=== PATIENT | female | born 1980 | race Caucasian/White ===

== ENCOUNTER → 2020-02-29 16:27 | Outpatient (BNVA) | payer OTHER, SELFPAY | PROVIDERS: Family Provider Family Medicine; PCP Internal Medicine Medical Oncology; Visit Provider Family Medicine | DX: Z20.828 Contact with and (suspected) exposure to other viral communicable diseases (principal) | CPT/HCPCS: 87635 ==

== ENCOUNTER → 2020-03-07 17:25 | Outpatient (BNVA) | payer OTHER, SELFPAY | PROVIDERS: Family Provider Family Medicine; PCP Internal Medicine Medical Oncology; Visit Provider Nurse Practitioner | DX: Z01.812 Encounter for preprocedural laboratory examination (principal); Z20.828 Contact with and (suspected) exposure to other viral communicable diseases | CPT/HCPCS: 87635 ==

== ENCOUNTER 2020-04-10 12:36 | Emergency (ER) | payer OTHER, SELFPAY ==
[2020-04-10 12:55] VITALS: BP 95/59; PULSE 80; RESP 16; TEMP 36.6; O2SAT 95; BMI 26.6
--- NOTE | 2020-04-10 13:03 | CT_ITS ---
WS: [id number] Exam: CT kidney stone [id number] Date/Time of Exam: 04/10/2020 1:35 PM Reason For Exam: L back pain DLP: 1223.[address] scans at [facility] use at least one of these dose optimization techniques: automat ed exposure control; mA and/or kV adjustment per patient size (includes targeted exams where dose is matched to clinical indication); or iterative reconstruction. Compared to prior study 11/01/2003. A 9 mm x 5.7 mm obstructing calculus is identified at the left UPJ. There is left hydronephrosis. An additional nonobstructing 2 mm stone is seen in the left kidney. No stones in the right kidney. The u reters are otherwise patent into the bladder. Lower lung zones are clear. Bilateral breast implants a re noted. The liver, gallbladder, spleen and pancreas appear normal. The stomach is unremarkable. Nor mal adrenal glands. The abdominal aorta is normal in caliber. No free air. No lymphadenopathy. Small bowel loops are not dilated. No significant large bowel abnormality seen. No sign of acute appendix. No mass or lymphadenopathy in the pelvis. The uterus is surgically absent. Intact urinary bladder. Fa t filled periumbilical hernia. No destructive bone lesions are seen. CT/CT kidney stone [id number] IMPRESSION: 1. 9 mm x 5.7 mm obstructing calculus at the left UPJ with hydronephrosis. An a dditional 2 mm nonobstructing stone in the left kidney. 2. Fat filled periumbilical hernia. 3. No other significant finding in the abdomen or pelvis.
--- NOTE | 2020-04-10 13:03 | W.ED.FEMALGU ---
HPI - Female Genitourinary General: Chief complaint: Urogenital-Female Stated complaint: severe lower back pain Time Seen by Provider: 04/10/20 12:59 Source: patient Mode of arrival: ambulatory Limitations: no limitations History of Present Illness: HPI Narrative: Patient is a nice 39-year-old female who presents to ED today with a complaint of left-sided back pain that began today fairly suddenly. Patient tells me she believes she might have a kidney stone. She states she had one stone approximately 16 years ago and states the pain feels similar. She has not had any injury or trauma to her back. No radicular symptoms. She states pain does seem to radiate into her abdomen. She reports nausea without vomiting. Urinary and defecation habits have been normal. She has not been running fevers. Blood pressure was noted to be low in triage 95/59. Patient has seen PCP recently who has changed her blood pressure medications for her hypertension. She denies lightheadedness/dizziness. MD elicited complaint: flank pain (L lower back pain) Onset (ago): hour(s) Location of symptoms: low back and other (L flank) Severity: severe Quality of pain: sharp Consistency: constant Vaginal discharge: none Vaginal bleeding: none Urinary symptoms: Flank Pain Exacerbating factors: none Relieving factors: none Associated symptoms: Reports nausea; Deny headache(s) Treatment prior to arrival: none Patient : No Review of Systems Const: Denies: fever(s), chills, body aches, fatigue or malaise Card: Denies: chest pain Resp: Denies: dyspnea GI: Reports: abdominal pain (reports back pain radiates into abdomen) and nausea; Denies: vomiting, hematemesis, diarrhea, constipation, change in stool character, hematochezia, melena or white/light colored stool : Reports: flank pain; Denies: difficulty voiding, dysuria, urinary frequency, urinary urgency or urinary hesitancy Musc: Reports: back pain; Denies: neck pain, extremity pain, extremity swelling, joint pain or joint swelling Skin/Breast: Denies: rash Neuro: Denies: headache(s) PFS ED PFSH: Medical History (Updated 04/10/20 @ 15:17 by YUNIOR Pratt) Hypertension OCD (obsessive compulsive disorder) Family History (Updated 04/05/20 @ 14:00 by Kelly Avery CMA) Family/Other Hypertension Social History (Updated 04/05/20 @ 14:00 by Kelly Avery CMA) Smoking and tobacco status: never smoked Second hand smoke exposure: Yes Alcohol intake: never Physical Exam Const: COMMON NORMALS: no acute distress, average body habitus, patient oriented x3, no limitations, healthy appearing, alert and well nourished GENERAL APPEARANCE: cooperative ORIENTATION/CONSCIOUSNESS: Yes awake, Yes oriented to person, Yes oriented to place and Yes oriented to time Resp: COMMON NORMALS: normal respiratory effort and clear to auscultation bilaterally AUSCULTATION: clear to auscultation bilaterally Cardio: COMMON NORMALS: regular rate and regular rhythm RHYTHM: regular rhythm GI: COMMON NORMALS: Normal to inspection, nondistended, normoactive bowel sounds present, Soft to palpation, No hepatosplenomegaly present and no masses PALPATION: Yes Soft to palpation, Yes Tenderness to palpation present (GI) (L mid abdomen) and Yes No hepatosplenomegaly present : COMMON NORMALS: Yes no CVA tenderness (TTP below L CVA) BLADDER/KIDNEY EXAM: Yes no CVA tenderness (TTP below L CVA) Back/Pelvis: COMMON NORMALS: no CVA tenderness (TTP below L CVA) Neuro: COMMON NORMALS: patient oriented x3 SENSORIUM/ORIENTATION: Yes alert, Yes oriented to person, Yes oriented to place and Yes oriented to time Skin: COMMON NORMALS: no rashes or lesions noted GENERAL SKIN EXAM: no rashes or lesions noted Course Consultations: Consultation #1: Dr. Mejia-will see patient in office tomorrow with plan for probable lithotripsy on Thursday; requests COVID screen Vital Signs: Vital signs: Vital Signs Temperature 97.9 F 04/10/20 12:55 Pulse Rate 78 04/10/20 14:28 Respiratory Rate 16 04/10/20 14:28 Blood Pressure 112/82 04/10/20 14:28 Pulse Oximetry 100 04/10/20 14:28 MDM - Female MDM Narrative: Medical decision making narrative: Patient's BP did improve during her stay. Her pain is well managed here. Given the size of her stone I did explain to her that urology can put in a ureter stent to help manage her pain however she feels like her pain could be adequately managed at home. I have spoken to Dr. Mejia who is okay with this plan. Urine does not look infected. He would like to see patient in office tomorrow with a plan for lithotripsy on Thursday. Patient will be discharged home with nausea meds and Flomax. She tells me she has enough leftover pain medications at home to last her several days and doesn't want/need a prescription today. Lab Data: Labs: Lab Results 04/10/20 04/10/20 04/10/20 Range/Units 13:21 13:40 13:40 WBC 11.3 H (4.0-10.0) 10^3/ uL RBC 4.82 (4.1-5.3) 10^6/u L Hgb 13.2 (11.5-15.3) g/dL Hct 41.4 (37.0-47.0) % MCV 85.9 (81-99) fL MCH 27.4 L (28.0-34.0) pg MCHC 31.9 (30.0-36.0) g/dL RDW 13.4 (12.1-15.1) % Plt Count 288 (130-400) 10^3/c mm MPV 11.6 H (7.4-10.4) fL Neut % (Auto) 78.9 % Lymph % (Auto) 15.5 % Dent % (Auto) 4.2 % Eos % (Auto) 0.6 % Baso % (Auto) 0.4 % Neut # (Auto) 8.89 H (1.8-7.7) 10^3/u L Lymph # (Auto) 1.7 (0.8-4.8) 10^3/u L Dent # (Auto) 0.5 (0.2-0.9) 10^3/u L Eos # (Auto) 0.1 (0.0-0.8) 10^3/u L Baso # (Auto) 0.1 (0.0-0.1) 10^3/u L Nucleated RBC % (a uto) 0 % Nucleated RBCs # 0.0 /100WBC Sodium 139 (136-145) mmol/L Potassium 3.4 L (3.5-5.1) mmol/L Chloride 103 (98-107) mmol/L Carbon Dioxide 25 (22-29) mmol/L Anion Gap 14.4 (5-19) BUN 14 (6-20) mg/dL Creatinine 0.6 (0.5-0.9) mg/dL GFR Calculation 111.9 (90-130) mL/min Glucose 113 (65-115) mg/dL Calculated Osmolal ity 289 (285-295) mOsm/k g Calcium 8.6 (8.5-10.5) mg/dL Total Bilirubin 0.4 (0.15-1.2) mg/dL AST 12 (0-32) U/L ALT 13 (0-33) U/L Alkaline Phosphata se 73 (35-105) IU/L Total Protein 7.5 (6.6-8.7) g/dL Albumin 4.2 (3.5-5.2) g/dL Globulin 3.3 (1.3-4.6) g/dL HCG, Qual (Negative) Urine Color Yellow (Yellow) Urine Appearance Hazy A (CLEAR) Urine pH 5 (5-7) Ur Specific Gravit y 1.020 (1.005-1.030) Urine Protein Neg (Negative) Urine Glucose (UA) Norm (Normal) Urine Ketones Negative (Negative) Urine Blood 3+ H (Negative) Urine Nitrate Negative (Negative) Urine Bilirubin Neg (Negative) Urine Urobilinogen Norm (Negative) mg/dL Ur Leukocyte Ronit ase Negative (Negative) Urine RBC 10-15 H (0-2) /hpf Urine WBC 0-4 H (0-5) /hpf Ur Squamous Epith Cells 5-10 H (0-5) /hpf Amorphous Sediment Not Reportable Urine Bacteria 3+ H (NONE) /hpf 04/10/20 Range/Units 13:40 WBC (4.0-10.0) 10^3/ uL RBC (4.1-5.3) 10^6/u L Hgb (11.5-15.3) g/dL Hct (37.0-47.0) % MCV (81-99) fL MCH (28.0-34.0) pg MCHC (30.0-36.0) g/dL RDW (12.1-15.1) % Plt Count (130-400) 10^3/c mm MPV (7.4-10.4) fL Neut % (Auto) % Lymph % (Auto) % Dent % (Auto) % Eos % (Auto) % Baso % (Auto) % Neut # (Auto) (1.8-7.7) 10^3/u L Lymph # (Auto) (0.8-4.8) 10^3/u L Dent # (Auto) (0.2-0.9) 10^3/u L Eos # (Auto) (0.0-0.8) 10^3/u L Baso # (Auto) (0.0-0.1) 10^3/u L Nucleated RBC % (a uto) % Nucleated RBCs # /100WBC Sodium (136-145) mmol/L Potassium (3.5-5.1) mmol/L Chloride (98-107) mmol/L Carbon Dioxide (22-29) mmol/L Anion Gap (5-19) BUN (6-20) mg/dL Creatinine (0.5-0.9) mg/dL GFR Calculation (90-130) mL/min Glucose (65-115) mg/dL Calculated Osmolal ity (285-295) mOsm/k g Calcium (8.5-10.5) mg/dL Total Bilirubin (0.15-1.2) mg/dL AST (0-32) U/L ALT (0-33) U/L Alkaline Phosphata se (35-105) IU/L Total Protein (6.6-8.7) g/dL Albumin (3.5-5.2) g/dL Globulin (1.3-4.6) g/dL HCG, Qual Negative (Negative) Urine Color (Yellow) Urine Appearance (CLEAR) Urine pH (5-7) Ur Specific Gravit y (1.005-1.030) Urine Protein (Negative) Urine Glucose (UA) (Normal) Urine Ketones (Negative) Urine Blood (Negative) Urine Nitrate (Negative) Urine Bilirubin (Negative) Urine Urobilinogen (Negative) mg/dL Ur Leukocyte Ronit ase (Negative) Urine RBC (0-2) /hpf Urine WBC (0-5) /hpf Ur Squamous Epith Cells (0-5) /hpf Amorphous Sediment Urine Bacteria (NONE) /hpf Discharge Plan Discharge Patient Disposition: Home Clinical Impression: Calculus of proximal left ureter Condition: Stable Prescriptions: New Zofran 4 mg tablet 4 mg PO Q6H PRN (Reason: nausea and vomiting) Qty: 14 RF: 0 Flomax 0.4 mg capsule 0.4 mg PO DAILY Qty: 10 RF: 0 No Action amlodipine-benazepril 5-20 mg capsule 1 cap PO DAILY 30 Days Qty: 30 RF: 1 fluoxetine 10 mg capsule 10 mg PO DAILY 30 Days Qty: 30 RF: 0 Discharge Orders: Discharge ED (Routine); Ordered 04/10/20 Ordered By: Suzette Hartmann Referrals: Paras Mejia MD [Physician] - Deepti Pedroza MD [Primary Care Provider] - Patient Instructions: Opioid Safety Activity Restrictions/Additional Instructions: [facility] is committed to fighting the nationwide opiate epidemic. We are providing ALL patients with information regarding opiate safety. If you received opiate pain medication during your stay or if you received a prescription for opiate pain medication-please review this handout. If not, you may disregard. Thank you. As we discussed Dr. Mejia's office should contact you today to set you up with your appointment time for tomorrow. You have been given a prescription for nausea meds and Flomax. You may use your leftover pain medications as they are prescribed for your discomfort. You need to return to the emergency department immediately for worsening or severe pain, repetitive episodes of vomiting/inability to hold down your medications, fevers greater than 100.4, inability to urinate, or any other concerns you may have. I hope you begin to feel better soon. Coding Level of Care Code ED On Site Wastewater Systems Technician for Tye Bell Exam Detailed
[2020-04-10 13:46] LABS: Add Urine Microscopic? YES; Bilirubin Urine Neg (Negative); Blood Urine 3+ (Negative); Glucose Urine UA Norm (Normal); Ketones Urine Negative (Negative); Leukocyte Esterase Urine Negative (Negative); Nitrate Urine Negative (Negative); Protein Urine Neg (Negative); Urine Appearance Hazy (CLEAR); Urine Color Yellow (Yellow); Urobilinogen Urine Norm (Negative); pH Urine 5 (5-7)
[2020-04-10 13:47] LABS: WBC Urine 0-4 /hpf (0-5)
[2020-04-10] MEDS: sodium chloride 0.9% 1,000 ML 999 ML IV (13:47)
[2020-04-10] MEDS: morphine 4 mg/mL SDV 1 mL IVP (13:47)
[2020-04-10] MEDS: ondansetron 2 mg/ML SDV 2 mL 4 MG IVP (13:47)
[2020-04-10 13:48] LABS: Add Urine Culture? Yes; Bacteria Urine 3+ /hpf
[2020-04-10 14:02] VITALS: BP 107/71; PULSE 86; RESP 16; O2SAT 99
[2020-04-10 14:11] LABS: Basophils # 0.1 10^3/uL (0.0-0.1); Basophils % 0.4 %; Eosinophils # 0.1 10^3/uL (0.0-0.8); Eosinophils % 0.6 %; Hematocrit 41.4 % (37.0-47.0); Hemoglobin 13.2 g/dL (11.5-15.3); Lymphocytes # 1.7 10^3/uL (0.8-4.8); Lymphocytes % 15.5 %; Mean Corpuscular HGB Conc 31.9 g/dL (30.0-36.0); Mean Corpuscular Hemoglobin 27.4 pg (28.0-34.0); Mean Corpuscular Volume 85.9 fL (81-99); Mean Platelet Volume 11.6 fL (7.4-10.4); Monocytes # 0.5 10^3/uL (0.2-0.9); Monocytes % 4.2 %; Neutrophils # 8.89 10^3/uL (1.8-7.7); Neutrophils % 78.9 %; Nucleated Red Blood Cells % 0 %; Platelet Count 288 10^3/cmm (130-400); Red Blood Count 4.82 10^6/uL (4.1-5.3); Red Cell Distribution Width 13.4 % (12.1-15.1); White Blood Count 11.3 10^3/uL (4.0-10.0)
[2020-04-10 14:24] LABS: HCG, Serum Qual Negative (Negative)
[2020-04-10 14:27] LABS: Alanine Aminotransferase 13 U/L (0-33); Albumin Level 4.2 g/dL (3.5-5.2); Alkaline Phosphatase 73 IU/L (35-105); Anion Gap 14.4 (5-19); Aspartate Amino Transferase 12 U/L (0-32); Blood Urea Nitrogen 14 mg/dL (6-20); Calcium 8.6 mg/dL (8.5-10.5); Carbon Dioxide 25 mmol/L (22-29); Chloride 103 mmol/L (98-107); Creatinine Clr Calc Pharmacy 140.6699; Globulin 3.3 g/dL (1.3-4.6); Glomerular Filtration Rate 111.9 mL/min (90-130); Glucose 113 mg/dL (65-115); Osmolality Calculated 289 mOsm/kg (285-295); Potassium 3.4 mmol/L (3.5-5.1); Sodium 139 mmol/L (136-145); Total Bilirubin 0.4 mg/dL (0.15-1.2); Total Protein 7.5 g/dL (6.6-8.7)
[2020-04-10 14:28] VITALS: BP 112/82; PULSE 78; RESP 16; O2SAT 100
--- NOTE | 2020-04-10 15:18 | DCPLANNER ---
application services manager was asked to schedule a follow up appointment for patient with Dr. Mejia. application services manager called the office of Dr. Mejia, spoke with Jessica, gave clinic patients information. application services manager was told that patients information would be printed and reviewed. Clinic will call patient with appointment information.
[2020-04-10 15:39] VITALS: PULSE 86; RESP 16; O2SAT 100
[2020-04-11 16:20] LABS: Coronavirus Test Green County Not Detected
--- NOTE | 2020-04-12 08:37 | PC.NURSE ---
Pt called and notified of negative COVID result.
--- NOTE | 2020-04-13 15:39 | DCPLANNER ---
Patient had a follow up appointment scheduled for 04.11.[address] Mejia - patient did attend appointment.
== END 2020-04-10 15:41 | disposition home or self-care (01) ==
PROVIDERS: Emergency Provider Physician Assistant; PCP Family Medicine
DX: N20.1 Calculus of ureter (principal); I10 Essential (primary) hypertension; Z77.22 Contact with and (suspected) exposure to environmental tobacco smoke (acute) (chronic)
CPT/HCPCS: 74176; 80053; 81001; 84703; 85025; 87086; 87635; 96361; 96374; 96375; 99283; J2270; J2405; J7030

== ENCOUNTER 2020-04-11 07:58 | Outpatient (CLI) | payer OTHER, SELFPAY ==
--- NOTE | 2020-04-11 08:01 | XR_ITS ---
WS: [id number] Exam: XR KUB [id number] Date/Time of Exam: 04/11/2020 8:01 AM Reason For Exam: URETERAL STONE 11 mm calcification noted along the left paraspinal region overlies the left transverse process of L3 and apparently represents a stone near the left UPJ. No other calcifications seen in the region of t he kidneys. Visualized organ margins are intact. No bowel obstruction or free air. Moderate amount of stool in the colon. Scoliosis of the lower T-spine. Visualized organ margins are otherwise intact. XR/XR KUB [id number] IMPRESSION: 1. 11 mm calcification superimposing the left transverse process of L3 apparent ly representing the patient's known left UPJ stone. 2. No other significant finding in the abdomen or pelvis.
== END 2020-04-11 07:59 | disposition home or self-care (01) ==
LOC: RAD 08:01
PROVIDERS: PCP Family Medicine; Visit Provider Urology
DX: N20.1 Calculus of ureter (principal)
CPT/HCPCS: 74018

== ENCOUNTER 2020-04-13 11:06 | Day surgery (SDC) | payer OTHER, SELFPAY ==
[2020-04-12 13:36] VITALS: BMI 26.6
[2020-04-13] VITALS (14 sets, daily range): BP systolic 88–120; BP diastolic 45–84; PULSE 81–123; RESP 16–22; TEMP 36.1–36.8; O2SAT 95–100
--- NOTE | 2020-04-13 11:27 | XR_ITS ---
WS: [id number] Exam: XR KUB [id number] Date/Time of Exam: 04/13/2020 11:27 AM Reason For Exam: Preop ESWL Comparison 04/11/2020. 9 mm calcification is noted superimposing left transverse process of L3. This represents the patient' s known left UPJ renal calculus. It shows hardly any movement since the prior study. No other suspici ous calcifications in the abdomen or pelvis. S-shaped scoliosis of the thoracic and lumbar spine. No bowel obstruction or free air. Visualized organ margins are intact. XR/XR KUB [id number] IMPRESSION: 1. 9 mm calcification along the left paraspinal region superimposing the left t ransverse process of L3. This apparently represents the patient's known UPJ sto ne. No significant movement since the last exam. 2. No other significant finding in the abdomen or pelvis.
[2020-04-13] MEDS: sodium chloride 0.9% 1,000 ML 30 ML IV (11:46)
--- NOTE | 2020-04-13 12:31 | P.ANESASSM_ITS ---
Pre-Anesthetic Assessment Pre-Anesthetic Assessment: Height/Weight: Height 1.73 m Weight 79.379 kg Temp Pulse Resp BP Pulse Ox 98.2 F 103 H 18 120/84 100 04/13/20 11:44 04/13/20 11:44 04/13/20 11:44 04/13/20 11:44 04/13/20 11:44 Preop Diagnosis: Large left proximal ureteral stone Proposed Procedure: Operation Date: 04/13/20 12:30 Proposed Procedures p Cystoscopy 16220 15111 N20.1(Not Applicable) - Paras Mejia MD s ESWL(Not Applicable) - Paras Mejia MD Was Beta Giovani taken within 24 hours: N/A Last intake: Intake Last Liquid Date 04/12/20 Last Liquid Time 23:00 Last Solid Date 04/12/20 Last Solid Time 20:00 Social: Social History: No alcohol and No tobacco Exam: Pre-Anes Outpt Exam: alert, oriented x 3, clear to auscultation bilaterally and regular rate & rhythm Airway: Submandibular: WNL Cervical ROM: WNL MP: 2 Dentition: Full CV/HEM: CV/HEM: HTN Neuropsych: Comments: OCD Anesthetic Plan: ASA status: 2 Anesthesia: General Other: PONV--TIVA Risk of > 500 ml blood loss (7ml/kg in children): No Meds/Allergies Current Medications: Current Medications Generic Name Dose Route Start Last Admin Trade Name Freq PRN Reason Stop Dose Admin Sodium Chloride 1,000 mls @ 30 ml s/hr 04/13/20 11:30 04/13/20 11:46 Sodium Chloride 0.9% IV 04/14/20 11:29 30 mls/hr .Q24H JOB Administration PFSH Anesthesia PFSH: Medical History Hypertension OCD (obsessive compulsive disorder) Family History Family/Other Hypertension Social History Smoking and tobacco status: never smoked Second hand smoke exposure: Yes Alcohol intake: never Marital status: Current occupational status: employed 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
[2020-04-13] MEDS: levofloxacin-dextrose 5 % 500 MG/100 ML PREMIX 100 MG IV (12:56)
--- NOTE | 2020-04-13 13:11 | W.PM.OPSUD ---
Surgery/Procedure H&P Update DATE OF PROCEDURE: April 13, 2020 DATE H&P PERFORMED: 04/11/20 H&P UPDATE INFORMATION: I have reviewed H&P completed within last 30 days, I have examined patient prior to procedure, No changes to prior documentation and H&P is in [facility] E[facility] on date indicated PREOP DIAGNOSIS: Large left proximal ureteral stone PLANNED PROCEDURE: Operation Date: 04/13/20 12:30 Proposed Procedures p Cystoscopy 46383 16189 N20.1(Not Applicable) - Paras Mejia MD s ESWL(Not Applicable) - Paras Mejia MD
--- NOTE | 2020-04-13 14:07 | P.OP_ITS ---
Operative Report Date of procedure: April 13, 2020 Pre-op Diagnosis: Large left proximal ureteral stone Post-op diagnosis: same Procedure Done: 1. Extracorporeal shockwave lithotripsy, left proximal ureteral stone Specimens removed/disposition: None Pathology: none sent Surgeon: Roberto Marine Meteorologist: Lithotripsy Starting Sheet Tank Operator: Anuel Tran Anesthesia: General Estimated blood loss: None Complications: None Findings: Excellent response to shockwave therapy at 2500 shocks. Could not see any significant fragments at the completion. No stent Condition: stable Disposition: PACU Brief History: Eileen is a very pleasant 39-year-old white female recently diagnosed with a large left proximal ureteral stone with obstruction. Stone failed to show any evidence of progress and ultimately she chose to proceed with treatment. We reviewed options including endoscopic versus ESWL and ultimately chose ESWL with or without stent pending response Procedure: After routine preoperative evaluation examination and obtaining of informed consent she was taken to operating suite on 04/13/2020 where general anesthesia was administered without difficulty. Appropriate timeout was performed, SCDs confirmed to be functioning, preoperative antibiotics administered, beta-adrienne protocol confirmed. Positioned on the Dornier unit in supine position paying careful attention to avoiding pressure points. The stone was easily identified. Shock head was positioned posteriorly. Shockwave therapy was initiated intensity of 1 and advanced an intensity of 4 with a several minute pause after approximately 300 shocks. Rate was 70 throughout. The stone demonstrated early change. Fluoroscopy was utilized for real-time position changes as indicated. Small amount of Trendelenburg was used during the procedure to facilitate proximal fragment/sand migration away from the stone By the completion of the procedure the stone could no longer be visualized. She tolerated the procedure well without complications and was awakened in the operating room and returned to the recovery room in stable condition. PLANS: 1. Anticipate discharge from outpatient surgery 2. Strain all voids 3. Follow-up in approximately 2 weeks with a KUB. Encouraged to call if there is any concerns or questions Associated Problem List Diagnoses (1) Calculus of proximal left ureter:
[2020-04-13] MEDS: ondansetron 2 mg/ML SDV 2 mL 4 MG IVP ×2 (14:33→14:40)
[2020-04-13] MEDS: fentaNYL 50 mcg/mL INJ 2mL IVP ×2 (14:44→14:49)
--- NOTE | 2020-04-13 16:01 | ANE.PACU2 ---
Inpatient post-anesthesia follow up: Airway intact: Yes Vital signs: Temperature 97 F Pulse Rate 84 Respiratory Rate 18 Blood Pressure 111/74 Pulse Oximetry 100 Oxygen Delivery Me thod Room Air Oxygen Flow Rate 8 Fraction of Inspir ed Oxygen Hydration adequate: Yes Nausea and vomiting: No Pain level: 1 Mental status: Baseline
== END 2020-04-13 16:20 | disposition home or self-care (01) ==
PROVIDERS: PCP Family Medicine; Visit Provider Urology
PROC: (CPT 50590; 2020-04-13 12:30)
DX: N20.1 Calculus of ureter (principal); I10 Essential (primary) hypertension; F42.9 Obsessive-compulsive disorder, unspecified
CPT/HCPCS: 50590; 74018; J1956; J2405; J2704; J2710; J3010; J3490; J7030

== ENCOUNTER 2020-05-30 07:35 | Outpatient (CLI) | payer OTHER, SELFPAY ==
--- NOTE | 2020-05-30 07:40 | MM_ITS ---
WS: [id number] BILATERAL DIGITAL DIAGNOSTIC MAMMOGRAM MAMMOGRAPHY WITH CAD CLINICAL INFORMATION: N63.10 - Unspecified lump in the right breast, unspecified quadrant HISTORY: Right breast palpable lump TECHNIQUE: Bilateral CC, MLO, and ML views. FINDINGS: Bilateral breast implants. Intact. The breasts are composed of heterogeneous fibroglandular density, which can limit the detection of sm all underlying mass lesions. Bilateral breast implants appear intact. Ovoid densities right breast which most likely represent inc idental cysts. Largest measures 1.5 cm. Ultrasound is pending. Palpable marker along the posterior ni pple line with underlying ovoid density measuring 8 mm. This abuts the breast implant. Left breast is unremarkable. ULTRASOUND BREAST RIGHT TECHNIQUE: Ultrasound right breast focused area of concern. CLINICAL INFORMATION: N63.10 - Unspecified lump in the right breast, unspecified quadrant FINDINGS: Ultrasound right breast at the nipple. Multiple incidental cysts and ductal ectasia with a benign hasmukh earance. In the area of palpable concern, there is a Hypoechoic lesion at the 7:00 position subareola r measuring 1.0 x 0.6 x 0.9 CM. This has a more solid appearance with internal echogenicity. Recommen d further evaluation with ultrasound-guided biopsy. No other suspicious abnormalities. MM/[place] [id number] IMPRESSION: BI-RADS: 4-Suspicious Finding-Biopsy Should Be Considered FOLLOW UP: US Guided Biopsy Recommended RECOMMEND ULTRASOUND-GUIDED BIOPSY HYPOECHOIC LESION 7:00 POSITION RIGHT BREAST
--- NOTE | 2020-05-30 08:45 | US_ITS ---
WS: [id number] BILATERAL DIGITAL DIAGNOSTIC MAMMOGRAM MAMMOGRAPHY WITH CAD CLINICAL INFORMATION: N63.10 - Unspecified lump in the right breast, unspecified quadrant HISTORY: Right breast palpable lump TECHNIQUE: Bilateral CC, MLO, and ML views. FINDINGS: Bilateral breast implants. Intact. The breasts are composed of heterogeneous fibroglandular density, which can limit the detection of sm all underlying mass lesions. Bilateral breast implants appear intact. Ovoid densities right breast which most likely represent inc idental cysts. Largest measures 1.5 cm. Ultrasound is pending. Palpable marker along the posterior ni pple line with underlying ovoid density measuring 8 mm. This abuts the breast implant. Left breast is unremarkable. ULTRASOUND BREAST RIGHT TECHNIQUE: Ultrasound right breast focused area of concern. CLINICAL INFORMATION: N63.10 - Unspecified lump in the right breast, unspecified quadrant FINDINGS: Ultrasound right breast at the nipple. Multiple incidental cysts and ductal ectasia with a benign hasmukh earance. In the area of palpable concern, there is a Hypoechoic lesion at the 7:00 position subareola r measuring 1.0 x 0.6 x 0.9 CM. This has a more solid appearance with internal echogenicity. Recommen d further evaluation with ultrasound-guided biopsy. No other suspicious abnormalities. US/US breast RT limited* [id number] IMPRESSION: BI-RADS: 4-Suspicious Finding-Biopsy Should Be Considered FOLLOW UP: US Guided Biopsy Recommended RECOMMEND ULTRASOUND-GUIDED BIOPSY HYPOECHOIC LESION 7:00 POSITION RIGHT BREAST
== END 2020-05-30 07:36 | disposition home or self-care (01) ==
LOC: RADSHAW 07:37
PROVIDERS: PCP Family Medicine; Visit Provider Family Medicine
DX: N63.13 Unspecified lump in the right breast, lower outer quadrant (principal); Z80.3 Family history of malignant neoplasm of breast
CPT/HCPCS: 76642; 77066

== ENCOUNTER → 2020-06-12 18:00 | Outpatient (BNVA) | payer OTHER, SELFPAY | PROVIDERS: PCP Family Medicine; Visit Provider Family Medicine | DX: R92.8 Other abnormal and inconclusive findings on diagnostic imaging of breast (principal); Z20.822 Contact with and (suspected) exposure to COVID-19; I10 Essential (primary) hypertension | CPT/HCPCS: 87635 ==

== ENCOUNTER 2020-06-14 13:10 | Outpatient (CLI) | payer OTHER, SELFPAY ==
--- NOTE | 2020-06-14 14:00 | US_ITS ---
WS: [id number] ULTRASOUND-GUIDED RIGHT BREAST BIOPSY HISTORY: Right breast lesion at 7:00 COMPARISON: 05/30/2020 Procedure, risks and complications are explained to the patient. Medications are reviewed. Consent is obtained. The mass in the RIGHT breast is localized with ultrasound. This mass is adjacent to the RIGHT breast implant. Skin is cleansed with ChloraPrep and anesthetized with 1% buffered lidocaine. Small dermatom e is made. Under sterile conditions mass is biopsied with an 18-gauge Achieve needle. Multiple core b iopsies are performed. Material placed in formalin and sent to pathology for review. No complications encountered. Breast tissue marker ([facility] ultrasound enhanced ribbon): Single. Clip is LEFT adjacent to the mass and not within it due to the close position to the implant. Patient left the radiology suite with no complications. Patient is instructed to return to [facility] or [facility] with any concerns. US/[place] [id number] IMPRESSION: 1. Uncomplicated core needle biopsy RIGHT breast mass at 7:00. PATHOLOGY: Benign breast tissue with duct ectasia and cyst formation. Small fra gments suggests fibroadenomatoid nodule. No malignancy. RECOMMENDATION: RIGHT breast ultrasound 6 months.
== END 2020-06-14 13:11 | disposition home or self-care (01) ==
LOC: RAD 13:14
PROVIDERS: PCP Family Medicine; Visit Provider Family Medicine
DX: N63.13 Unspecified lump in the right breast, lower outer quadrant (principal); N60.41 Mammary duct ectasia of right breast
CPT/HCPCS: 19083; 88305

== ENCOUNTER 2020-08-07 09:16 | Outpatient (CLI) | payer SELFPAY ==
[2020-08-07 10:58] LABS: HF Add Manual Diff No
[2020-08-07 11:07] LABS: Basophils % 0.4 %; Eosinophils # 0.1 10^3/uL (0.0-0.8); Eosinophils % 1.2 %; Hematocrit 41.9 % (37.0-47.0); Hemoglobin 13.4 g/dL (11.5-15.3); Lymphocytes # 2.2 10^3/uL (0.8-4.8); Lymphocytes % 19.5 %; Mean Corpuscular Hemoglobin 28.6 pg (28.0-34.0); Mean Corpuscular Volume 89.3 fL (81-99); Mean Platelet Volume 11.1 fL (7.4-10.4); Monocytes # 0.6 10^3/uL (0.2-0.9); Monocytes % 5.7 %; Neutrophils # 8.12 10^3/uL (1.8-7.7); Neutrophils % 72.8 %; Nucleated Red Blood Cells % 0 %; Platelet Count 314 10^3/cmm (130-400); Red Blood Count 4.69 10^6/uL (4.1-5.3); Red Cell Distribution Width 12.7 % (12.1-15.1); White Blood Count 11.2 10^3/uL (4.0-10.0)
[2020-08-07 11:48] LABS: 25 Hydroxy Vitamin D 45 ng/mL (30-100); Alanine Aminotransferase 15 U/L (0-33); Albumin Level 4.2 g/dL (3.5-5.2); Alkaline Phosphatase 81 IU/L (35-105); Anion Gap 10.6 (5-19); Aspartate Amino Transferase 13 U/L (0-32); Blood Urea Nitrogen 16 mg/dL (6-20); Calcium 9.1 mg/dL (8.5-10.5); Carbon Dioxide 30 mmol/L (22-29); Chloride 100 mmol/L (98-107); Chol HDL Ratio 4.67 mg/dL (0.0-4.40); Cholesterol 210 mg/dL (0-200); Glomerular Filtration Rate 138.1 mL/min (90-130); Glucose 81 mg/dL (65-115); HDL Cholesterol 45 mg/dL (60-100); LDL Cholesterol Calculated 147 mg/dL (50-129); LDL HDL Ratio 3.27 RATIO (0.00-3.22); Osmolality Calculated 284 mOsm/kg (285-295); Potassium 3.6 mmol/L (3.5-5.1); Sodium 137 mmol/L (136-145); Thyroid Stimulating Hormone 0.87 uIU/mL (0.27-4.20); Total Bilirubin 0.4 mg/dL (0.15-1.2); Total Protein 7.2 g/dL (6.6-8.7); Triglycerides 92 mg/dL (0-150)
[2020-08-07 11:58] LABS: Estmated Average Glucose 91; Hemoglobin A1C 4.8 % (4.0-6.0)
== END 2020-08-07 09:17 | disposition home or self-care (01) ==
LOC: LAB 09:19
PROVIDERS: PCP Family Medicine; Visit Provider Dermatology
DX: Z13.9 Encounter for screening, unspecified (principal)
CPT/HCPCS: 36415

== ENCOUNTER 2020-11-02 08:10 | Outpatient (CLI) | payer OTHER, SELFPAY ==
[2020-11-02 12:32] LABS: Amphetamines Screen Urine Negative (Negative); Barbiturates Screen Urine Negative (Negative); Benzodiazepines Screen Urine Negative (Negative); Cocaine Screen Urine Negative (Negative); Opiate Screen Urine Negative (Negative); PCP Screen Urine Negative (Negative); THC Screen Urine Negative (Negative)
[2020-11-05 13:22] LABS: Quantiferon Mitogen 9.29 IU/mL; Quantiferon Nil 0.01 IU/mL; Quantiferon TB Gold NEGATIVE (NEGATIVE)
== END 2020-11-02 08:11 | disposition home or self-care (01) ==
LOC: ONCMED 08:17
PROVIDERS: PCP Family Medicine; Visit Provider Emergency Medicine
DX: Z02.1 Encounter for pre-employment examination (principal)
CPT/HCPCS: 80306; 86480